=== PATIENT | male | born 1975 | race Caucasian/White ===

== ENCOUNTER 2017-07-12 08:04 | Emergency (ER) | payer SELFPAY ==
--- NOTE | 2017-07-12 08:53 | Emergency Department Record ---
History of Present Illness - General Chief Complaint: Ankle/Foot Injury Stated Complaint: SPRAINED ANKLE Time Seen by Provider: 07/12/17 08:07 Source: Patient Mode of Arrival: Ambulatory Limitations: No limitations - History of Present Illness Initial Comments: The patient is here due to injuring his R ankle yesterday. He slipped going down a few steps and inverted the ankle. It has been painful since and he has been unable to weight bear on it. There is no numbness or tingling. MD Complaint: Ankle injury Onset/Timin -: Hour(s) Type of Injury: Hyperextension Place: Work Severity: Moderate Severity scale (1-10): 4 Improves With: Nothing Worsens With: Weight bearing Context: Other - Related Data Home Medications Medication Instructions Recorded Confirmed Last Taken Loratadine [Claritin] 10 mg PO QHS 07/12/17 07/12/17 07/11/17 Previous Rx's Medication Instructions Recorded Naproxen [Naprosyn] 500 mg PO BID #14 tablet. 07/12/17 Allergies Allergy/AdvReac Type Severity Reaction Status Date / Time No Known Drug Allergies Allergy Verified 07/12/17 08:17 Travel Screening - Travel/Exposure Within Last 30 Days Have you traveled within the last 30 days?: No - Travel/Exposure Within Last Year Have you traveled outside the [place] in the last year?: No - Additonal Travel Details Have you been exposed to anyone with a communicable illness?: No - Travel Symptoms Symptom Screening: None Review of Systems Constitutional: Denies: Chills, Fever Past Medical History - SOCIAL HISTORY Smoking Status: Never smoker Alcohol Use: None Drug Use: None - RESPIRATORY Hx Respiratory Disorders: Yes Hx Asthma: Yes - CARDIOVASCULAR Hx Cardio Disorders: No - NEURO Hx Neuro Disorders: No - GI Hx GI Disorders: No - ENDOCRINE Hx Endocrine Disorders: No - MUSCULOSKELETAL Hx Musculoskeletal Disorders: No - PSYCH Hx Psych Problems: Yes Hx Anxiety: Yes Hx Depression: Yes - HEMATOLOGY/ONCOLOGY Hx Hematology/Oncology Disorders: No Family Medical History Any Significant Family History?: No Physical Exam - General General Appearance: Alert, Cooperative, No acute distress - Head Head exam: Atraumatic, Normocephalic - Eye Eye exam: Normal appearance, PERRL - Extremities Extremities exam: Normal capillary refill, Tenderness (There is tenderness at the distal fibula and just inferior to the lateral malleolus. There is no knee tenderness.), Other (The R foot is NVI with normal pulses and is stable on stressing the joint.). negative: Normal inspection (There is mild to mod swelling to the R lateral ankle area.), Full ROM (There is decreased ROM due to the pain. ) Image of Full Body: 1 - Area of pain and tenderness. Course Vital Signs 07/12/17 08:07 Temperature 98.6 F Pulse Rate 83 Respiratory 16 Rate Blood Pressure 144/83 Pulse Ox 98 - Reevaluation(s) Reevaluation #1: The patient is doing well. I did explain to him the xrays are neg. He is to be non weight bearing for 3 days and then slowly start walking. 07/12/17 08:57 Medical Decision Making - Data Complexity MDM Data: X-Ray Ordered and/or Reviewed - Radiology Data Radiology results: Report reviewed (R ankle: Neg.) Disposition Disposition: Discharge Clinical Impression: Ankle sprain Qualifiers: Encounter type: initial encounter Involved ligament of ankle: unspecified ligament Laterality: right Qualified Code(s): S93.401A - Sprain of unspecified ligament of right ankle, initial encounter Disposition: Home, Self-Care Condition: (2) Stable Instructions: Ankle Sprain (ED) Additional Instructions: Please wear the ankle splint and use the crutches for 3-4 days. Slowly start weight bearing on Sunday. Ice and elevate the ankle for the next 3 days. Use Naprosyn for pain. Please see your PCP next week if not better. Prescriptions: Naproxen [Naprosyn] 500 mg PO BID #14 tablet.dr Forms: Patient Portal Access Time of Disposition: 08:53 Quality - Quality Measures Quality Measures: N/A - Blood Pressure Screening View Details: Yes Does Patient Have Any of the Following: No Blood Pressure Classification: Pre-Hypertensive BP Reading Systolic Measurement: 141 Diastolic Measurement: 85 Screening for High Blood Pressure: < Pre-Hypertensive BP, F/U Documented > [ [id number]] Pre-Hypertensive Follow-up Interventions: Referral to alternative/primary care provider.
--- NOTE | 2017-07-12 12:05 | RADIOLOGY REPORT ---
EXAM: RIGHT ANKLE COMPLETE HISTORY: PAIN AND SWELLING POST TWISTING INJURY. TECHNIQUE: AP, oblique and lateral views of the right ankle were obtained. Comparison: None. Encounter: Initial. FINDINGS: There is normal bone mineralization. No acute fracture, dislocation , or destructive bone lesion is seen. The ankle mortise joint is symmetric. There is minor calcaneal spurring. Anterolateral soft tissue swelling is present. IMPRESSION: 1. ANTEROLATERAL SOFT TISSUE SWELLING. NO DEFINITE ACUTE FRACTURE. SYMMETRIC ANKLE MORTISE JOINT. 2. MINOR CALCANEAL SPURRING. JOB NUMBER: [id number] [facility]
== END 2017-07-12 09:08 | disposition home or self-care (01) ==
LOC: ER 08:04
DX: S93.401A Sprain of unspecified ligament of right ankle, initial encounter (principal); X50.0XXA Overexertion from strenuous movement or load, initial encounter; Y99.0 Civilian activity done for income or pay
CPT/HCPCS: 99283